=== PATIENT | male | born 1990 | race Two or more races ===

== ENCOUNTER 2025-07-08 07:51 | Emergency (ER) | payer MEDICAID ==
[~2025-07-08] VITALS: Ht 172.7 cm; Wt 77.1 kg
[2025-07-08 08:01] VITALS: TEMP 98.2
[2025-07-08] MEDS ORDERED: oxyCODONE/APAP (5/325 MG) 1 UDTAB TABLET ONE (08:18)
[2025-07-08] MEDS: oxyCODONE/APAP (5/325 MG) 1 UDTAB TABLET PO ONE (08:41)
[2025-07-08 10:06] VITALS: BP 108/72; O2SAT 99
== END 2025-07-08 09:50 | disposition home or self-care (01) ==
LOC: ER 07:58
DX: M25.552 Pain in left hip (principal); M25.511 Pain in right shoulder; R51.9 Headache, unspecified
CPT/HCPCS: 70450-TC; 73030-TC